=== PATIENT | female | born 1960 | race Caucasian/White ===

== ENCOUNTER 2021-12-11 11:23 | Emergency (ER) | payer OTHER ==
[~2021-12-11] VITALS: Ht 170.2 cm; Wt 73.9 kg
[2021-12-11 11:25] VITALS: BP_SYST 158
--- NOTE | 2021-12-11 11:40 | NUR ---
Patient to ER bed 05 to gown for evaluation. Side rails up.
--- NOTE | 2021-12-11 12:21 | NUR ---
In ER bed 5 C/O R arm pain States that she had a serious infection there before and is worried about it No redness no Edema
[2021-12-11] MEDS ORDERED: NACL 0.9% 1,000 ML IV ONE (12:30)
[2021-12-11 12:59] LABS: EOSINOPHILS # (AUTO) 0.1 K/uL (0.0-0.4); RED BLOOD CELL COUNT(AUTO) 4.53 MIL/uL (4.2-6.2); RED CELL DISTRIBUTION WIDTH 14.1 % (9.0-15.0)
[2021-12-11 13:06] LABS: BASOPHILS # (AUTO) 0.1 K/uL (0.0-0.2); BASOPHILS % (AUTO) 0.8 % (0.0-2.0); EOSINOPHILS % (AUTO) 0.5 % (0.0-4.0); HEMATOCRIT 39.4 % (36-48); HEMOGLOBIN 13.4 g/dL (12.0-16.0); LYMPHOCYTES # (AUTO) 1.5 K/uL (1.0-5.5); LYMPHOCYTES % (AUTO) 15.8 % (20.5-51.5); MEAN CORPUSCULAR HEMOGLOBIN 30 pg (27-31); MEAN CORPUSCULAR HGB CONC 34 % (32-36); MEAN CORPUSCULAR VOLUME 87 fL (79.0-98.0); MONOCYTES # (AUTO) 0.5 K/uL (0.0-1.0); MONOCYTES % (AUTO) 4.7 % (1.7-9.3); NEUTROPHILS # (AUTO) 7.5 K/uL (1.8-7.7); NEUTROPHILS % (AUTO) 78.2 % (40.0-70.0); WHITE BLOOD COUNT (AUTO) 9.6 K/uL (4.8-10.8)
[2021-12-11 13:07] LABS: ANION GAP 13 (5-15); CALCIUM 9.4 mg/dL (8.4-11.0); CHLORIDE 101 mmol/L (98-107); CREATININE 0.95 mg/dL (0.55-1.30); GLUCOSE 210 mg/dL (70-99); POTASSIUM 4.3 mmol/L (3.5-5.1); SODIUM SERUM 136 mmol/L (136-145); UREA NITROGEN, BLOOD 12 mg/dL (8-21)
[2021-12-11 13:13] LABS: GFR AFRICAN AMERICAN 77 mL/min (>90)
[2021-12-11 13:16] LABS: ALANINE AMINOTRANSFERASE 37 U/L (12-78); ALBUMIN 4.6 g/dL (3.4-4.8); ASPARTATE AMINOTRANSFERASE 20 U/L (10-37); TOTAL BILIRUBIN 0.3 mg/dL (0.0-1.0)
[2021-12-11 13:39] LABS: BILIRUBIN,URINE NEGATIVE (NEGATIVE); BLOOD, URINE NEGATIVE (NEGATIVE); CLARITY/URINE CLEAR (CLEAR); COLOR,URINE YELLOW (YELLOW); GLUCOSE,URINE 1+ (NEGATIVE); KETONES,URINE NEGATIVE (NEGATIVE); LEUKOCYTE ESTERASE ,URINE NEGATIVE (NEGATIVE); NITRITE, URINE NEGATIVE (NEGATIVE); PH,URINE 5.5 (5.0-8.0); PROTEIN URINE NEGATIVE (NEGATIVE); UROBILINOGEN,URINE 0.2 (0.2-1.0)
[2021-12-11 13:41] LABS: PLATELET COUNT (AUTO) 217 K/uL (130-430)
[2021-12-11 13:42] LABS: ERYTHROCYTE SEDIMENTATION RATE 14 MM/HR (0-20)
[2021-12-11] MEDS ORDERED: CEPH-548 PO (14:21)
[2021-12-11] MEDS ORDERED: NACL 0.9% 1,250 ML IV ONE (14:30)
[2021-12-11] MEDS ORDERED: cefTRIAXone 1 GM in D5W 50 ML IV ONE (14:30)
[2021-12-11 15:28] VITALS: BP_SYST 127
--- NOTE | 2021-12-11 15:33 | NUR ---
Stable VSS Afebrile Pain free MD has explained all results to patient annd understanding verbalized. Instructed to F/U with primary Dc'd home To exit
[2021-12-11] MEDS ORDERED: cefTRIAXone 1 GM VIAL ONE (15:41)
--- NOTE | 2021-12-16 17:58 | NUR ---
ADDEDUM:START NACL 1230 STOP 1330 START ROCEPHIN 1612 STOP 1642
--- NOTE | 2022-01-06 11:27 | NUR ---
ADDENDUM: NACL 1250ML NOT ADMINISTERED.
== END 2021-12-11 15:32 | disposition hospice, home (50) ==
LOC: SED 11:23
DX: E11.65 Type 2 diabetes mellitus with hyperglycemia (principal); R73.9 Hyperglycemia, unspecified; M79.631 Pain in right forearm; E86.0 Dehydration; I10 Essential (primary) hypertension
CPT/HCPCS: 36415; 73090; 76882; 80053; 81003; 83605; 84484; 85025; 85651; 87040; 87086; 96361; 96365; 99285; J0696; J7030

== ENCOUNTER 2023-09-04 10:31 | Emergency (ER) | payer OTHER ==
[~2023-09-04] VITALS: Ht 170.2 cm; Wt 77.1 kg
[~2023-09-04 10:31] MED LIST: CEPH-548 PO
[2023-09-04 10:38] VITALS: BP_SYST 164; PULSE 101; RESP 16; TEMP 98.3; O2SAT 97
[2023-09-04] MEDS: KETOROLAC TROMETHAMINE 60 MG/2 ML VIAL IM ONE (11:48)
[2023-09-04] MEDS ORDERED: IBUP-1969 PO (12:28)
[2023-09-04] MEDS ORDERED: TRAM50TA2 PO (12:28)
[2023-09-04 12:47] VITALS: BP_SYST 158; PULSE 74; RESP 20; TEMP 97.2; O2SAT 97
== END 2023-09-04 12:53 | disposition home or self-care (01) ==
LOC: SED 10:31
DX: R51.9 Headache, unspecified (principal); I10 Essential (primary) hypertension; E11.9 Type 2 diabetes mellitus without complications; Z79.899 Other long term (current) drug therapy
CPT/HCPCS: 99285; 70450; 76376; 96372; 82948; J1885